=== PATIENT | female | born 1960 | race Hispanic/Latino ===

== ENCOUNTER 2018-01-28 13:17 | Emergency (ER) | payer BC ==
[~2018-01-28] VITALS: Ht 147.3 cm; Wt 143.3 kg
[2018-01-28] MEDS ORDERED: ACETAMINOPHEN 325 MG TAB PO ONE (15:30)
[2018-01-28 15:48] VITALS: BP 147/65
== END 2018-01-28 15:53 | disposition home or self-care (01) ==
LOC: FSED 13:17
DX: R07.89 Other chest pain (principal); M94.0 Chondrocostal junction syndrome [Tietze]; I10 Essential (primary) hypertension; E66.01 Morbid (severe) obesity due to excess calories
CPT/HCPCS: 93005; 99284